=== PATIENT | male | born 1950 | race Caucasian/White ===

== ENCOUNTER 2020-09-30 18:48 | Inpatient (IN) ==
[2020-09-30] MEDS ORDERED: Isovue-370 500 ML BOTTLE IVP ONE (19:03)
[2020-09-30 19:32] LABS: Basophils % 0.3 %; Eosinophils # 0.3 K/mcL (0.0-0.6); Eosinophils % 3.4 %; Hematocrit 37.1 % (37.5-50.1); Hemoglobin 11.6 g/dL (12.9-16.9); Immature Granulocytes % 0.3 % (0-4); Lymphocytes # 1.3 K/mcL (0.6-4.6); Mean Corpuscular HGB Conc 31.3 g/dL (31.6-35.5); Mean Corpuscular Volume 86.5 fL (83.0-100.0); Mean Platelet Volume 9.5 fL (9.4-12.4); Monocytes # 0.6 K/mcL (0.0-1.3); Monocytes % 6.1 %; Neutrophils # 6.9 K/mcL (1.6-8.9); Platelet Count 378 K/mcL (140-400); Red Blood Count 4.29 M/mcL (4.19-5.50); Red Cell Distribution Width 15.7 % (11.5-14.5); Segmented Neutrophils % 75.9 %; White Blood Count 9.1 K/mcL (4.3-11.1)
[2020-09-30 19:42] LABS: Bacteria,Urine Few per hpf (None-Few); Bilirubin,Urine Negative (Negative); Blood,Urine Large (Negative); Calcium Oxalate Crystals,Urine Present; Clarity,Urine Turbid (Clear); Color,Urine Yellow (Yellow); Glucose,Urine (UA) Normal (Normal); Hyaline Casts,Urine Few per lpf (None Seen); Ketones,Urine 10 mg/dL (Negative); Leukocyte Esterase,Urine Negative (Negative); Mucus,Urine Moderate per lpf (None-Few); Nitrite,Urine Negative (Negative); Protein,Urine 100 mg/dL (Neg-Trace); RBC,Urine TNTC per hpf (0-3); Specific Gravity,Urine 1.026 (1.010-1.025); Squamous Epithelial Cell,Urine Few per hpf (None-Few)
[2020-09-30 19:45] LABS: Alanine Aminotransferase 20 Units/L (7-52); Albumin/Globulin Ratio 1.2 (1.1-2.2); Alkaline Phosphatase 107 Units/L (34-104); Aspartate Amino Transferase 21 Units/L (13-39); BUN/Creatinine Ratio 22 (6-26); Bilirubin,Direct 0.1 mg/dL (0.0-0.2); Bilirubin,Indirect 0.5 mg/dL (0.0-1.0); Bilirubin,Total 0.6 mg/dL (0.3-1.0); Blood Urea Nitrogen 22 mg/dL (8-23); Calcium 9.4 mg/dL (8.6-10.3); Carbon Dioxide 23 mEq/L (23-29); Chloride 106 mEq/L (98-107); Globulin 3.4 g/dL (2.4-3.5); Glucose 131 mg/dL (70-105); Lipase 24 Units/L (11-82); Osmolality,Calculated 291 (280-300); Potassium 3.5 mEq/L (3.5-5.1); Sodium 138 mEq/L (136-145); Total Protein 7.4 g/dL (6.4-8.9); Troponin I < 0.03 ng/mL (< 0.04); eGFR For African Americans > 60 (> 60); eGFR For Non-African Americans > 60 (> 60)
[2020-09-30] MEDS ORDERED: *HR* FentaNYL (PF) 100 MCG/2 ML VIAL IVP ONE (20:55)
[2020-09-30] MEDS ORDERED: Naloxone 0.4 MG/ML INJ IVP PRN (22:06)
[2020-09-30] MEDS ORDERED: *HR* HYDROcodone/Acet 5/325 mg TABLET PO PRN (22:06)
[2020-09-30] MEDS ORDERED: Acetaminophen 325 MG TABLET PO PRN (22:06)
[2020-09-30] MEDS ORDERED: Ondansetron 4 MG/2 ML VIAL IVP PRN (22:06)
[2020-09-30] MEDS ORDERED: *HR* OxyCODONE Immed Rel 5 MG TABLET PO PRN (22:06)
[2020-09-30] MEDS ORDERED: *HR* HYDROmorphone (PF) 1 MG/ML SYRINGE IVP PRN (22:09)
[2020-10-01] MEDS: Ringers Solution, Lactated 1,000 ML IVC SCH ×2 (00:12→08:14)
[2020-10-01 03:18] LABS: Basophils % 0.4 %; Eosinophils # 0.4 K/mcL (0.0-0.6); Eosinophils % 4.6 %; Hematocrit 37.5 % (37.5-50.1); Hemoglobin 11.6 g/dL (12.9-16.9); Immature Granulocytes % 0.5 % (0-4); Lymphocytes # 1.6 K/mcL (0.6-4.6); Lymphocytes % 19.1 %; Mean Corpuscular HGB Conc 30.9 g/dL (31.6-35.5); Mean Corpuscular Hemoglobin 26.9 pg (28.0-33.3); Mean Platelet Volume 9.3 fL (9.4-12.4); Monocytes # 0.6 K/mcL (0.0-1.3); Monocytes % 7.2 %; Neutrophils # 5.6 K/mcL (1.6-8.9); Platelet Count 348 K/mcL (140-400); Red Blood Count 4.31 M/mcL (4.19-5.50); Red Cell Distribution Width 15.4 % (11.5-14.5); Segmented Neutrophils % 68.2 %; White Blood Count 8.2 K/mcL (4.3-11.1)
[2020-10-01 03:36] LABS: BUN/Creatinine Ratio 21 (6-26); Blood Urea Nitrogen 17 mg/dL (8-23); Calcium 9.3 mg/dL (8.6-10.3); Carbon Dioxide 24 mEq/L (23-29); Chloride 105 mEq/L (98-107); Glucose 104 mg/dL (70-105); Osmolality,Calculated 290 (280-300); Potassium 3.4 mEq/L (3.5-5.1); Sodium 139 mEq/L (136-145); eGFR For African Americans > 60 (> 60); eGFR For Non-African Americans > 60 (> 60)
[2020-10-01] MEDS: *HR* Heparin 5,000 UNIT/ML VIAL SQ SCH ×2 (05:58→19:42)
[2020-10-01 09:22] LABS: Influenza A PCR Negative (Negative); Influenza B PCR Negative (Negative); Resp. Syncytial Virus PCR Negative (Negative)
[2020-10-01 10:23] LABS: SARS-CoV-2 by PCR (In House) Negative (Negative)
[2020-10-01] MEDS ORDERED: *HR* OxyCODONE Immed Rel 5 MG TABLET PO PRN ×2 (16:13→18:13)
[2020-10-01] MEDS ORDERED: *HR* HYDROmorphone PF 0.5 MG/0.5 ML SYRINGE IVP PRN (16:13)
[2020-10-01] MEDS ORDERED: Ondansetron 4 MG/2 ML VIAL IVP PRN ×2 (16:13→18:13)
[2020-10-01] MEDS ORDERED: Famotidine 20 MG/2 ML VIAL ONE (16:23)
[2020-10-01] MEDS ORDERED: Dexamethasone 4 MG/ML VIAL ONE (17:07)
[2020-10-01] MEDS ORDERED: Lidocaine -MPF 2% 2 ML VIAL ONE (17:07)
[2020-10-01] MEDS ORDERED: *HR* FentaNYL (PF) 100 MCG/2 ML VIAL ONE (17:07)
[2020-10-01] MEDS ORDERED: *HR* Propofol 200 MG/20 ML VIAL IVP ONE (17:07)
[2020-10-01] MEDS ORDERED: Ondansetron 4 MG/2 ML VIAL ONE (17:07)
[2020-10-01] MEDS ORDERED: *HR* PHENYLEPHRINE 1,000 MCG/10 ML SYRINGE IVP ONE (17:24)
[2020-10-01] MEDS ORDERED: Naloxone 0.4 MG/ML INJ IVP PRN (18:13)
[2020-10-01] MEDS ORDERED: Acetaminophen 325 MG TABLET PO PRN (18:13)
[2020-10-01] MEDS ORDERED: *HR* HYDROmorphone (PF) 1 MG/ML SYRINGE IVP PRN (18:13)
[2020-10-01] MEDS ORDERED: Ringers Solution, Lactated 1,000 ML IVC SCH (18:13)
[2020-10-01] MEDS ORDERED: *HR* HYDROcodone/Acet 5/325 mg TABLET PO PRN (18:13)
[2020-10-02] MEDS ORDERED: Ringers Solution, Lactated 1,000 ML ONE (04:52)
[2020-10-02] MEDS ORDERED: Ringers Solution, Lactated 1,000 ML IVC SCH (05:00)
[2020-10-02 05:31] LABS: BUN/Creatinine Ratio 21 (6-26); Blood Urea Nitrogen 17 mg/dL (8-23); Calcium 9.1 mg/dL (8.6-10.3); Carbon Dioxide 26 mEq/L (23-29); Chloride 105 mEq/L (98-107); Glucose 174 mg/dL (70-105); Magnesium 1.9 mg/dL (1.6-2.6); Osmolality,Calculated 290 (280-300); Phosphorous 2.8 mg/dL (2.7-4.5); Potassium 4.2 mEq/L (3.5-5.1); Sodium 137 mEq/L (136-145); eGFR For African Americans > 60 (> 60); eGFR For Non-African Americans > 60 (> 60)
[2020-10-02] MEDS: *HR* Heparin 5,000 UNIT/ML VIAL SQ SCH ×2 (06:06→18:24)
[2020-10-02 16:05] VITALS: BP 152/80
== END 2020-10-02 19:58 | disposition home health service (06) | DRG 661 ==
LOC: EMEROOARM 18:48 → 3ANU 18:48 → SUATTDRO 22:32 → 3ANU 23:24
PROVIDERS: ADMIT Internal Medicine; ATTEND Internal Medicine

== ENCOUNTER 2021-03-07 20:23 | Inpatient (IN) ==
[2021-03-07] MEDS ORDERED: Morphine Sulfate 2 MG/ML SYRINGE IVP ONE (20:31)
[2021-03-07] MEDS ORDERED: Isovue-370 500 ML BOTTLE IVP ONE (20:32)
[2021-03-07 21:08] LABS: Basophils # 0.1 K/mcL (0.0-0.2); Basophils % 0.7 %; Eosinophils # 0.8 K/mcL (0.0-0.6); Eosinophils % 11.2 %; Hematocrit 39.1 % (37.5-50.1); Hemoglobin 12.3 g/dL (12.9-16.9); Immature Granulocytes % 0.3 % (0-4); Lymphocytes # 1.4 K/mcL (0.6-4.6); Lymphocytes % 20.5 %; Mean Corpuscular HGB Conc 31.5 g/dL (31.6-35.5); Mean Corpuscular Hemoglobin 28.8 pg (28.0-33.3); Mean Corpuscular Volume 91.6 fL (83.0-100.0); Mean Platelet Volume 9.9 fL (9.4-12.4); Monocytes # 0.5 K/mcL (0.0-1.3); Monocytes % 6.5 %; Neutrophils # 4.2 K/mcL (1.6-8.9); Platelet Count 265 K/mcL (140-400); Red Blood Count 4.27 M/mcL (4.19-5.50); Red Cell Distribution Width 14.5 % (11.5-14.5); Segmented Neutrophils % 60.8 %; White Blood Count 6.9 K/mcL (4.3-11.1)
[2021-03-07 21:20] LABS: INR 1.1; Prothrombin Time 12.4 Seconds (9.4-12.1)
[2021-03-07 21:22] LABS: Alanine Aminotransferase 22 Units/L (7-52); Albumin/Globulin Ratio 1.7 (1.1-2.2); Alkaline Phosphatase 93 Units/L (34-104); Aspartate Amino Transferase 24 Units/L (13-39); BUN/Creatinine Ratio 19 (6-26); Bilirubin,Direct 0.1 mg/dL (0.0-0.2); Bilirubin,Indirect 0.4 mg/dL (0.0-1.0); Bilirubin,Total 0.5 mg/dL (0.3-1.0); Blood Urea Nitrogen 16 mg/dL (8-23); Calcium 9.1 mg/dL (8.6-10.3); Carbon Dioxide 24 mEq/L (23-29); Chloride 107 mEq/L (98-107); Globulin 2.4 g/dL (2.4-3.5); Glucose 134 mg/dL (70-105); Lipase 26 Units/L (11-82); Osmolality,Calculated 289 (280-300); Potassium 3.7 mEq/L (3.5-5.1); Sodium 138 mEq/L (136-145); Total Protein 6.4 g/dL (6.4-8.9); Troponin I < 0.03 ng/mL (< 0.04); eGFR For African Americans > 60 (> 60); eGFR For Non-African Americans > 60 (> 60)
[2021-03-07 21:23] LABS: Activated Partial Thrombo Time 29.4 Seconds (26.0-36.0)
[2021-03-07 23:56] LABS: Bilirubin,Urine Negative (Negative); Blood,Urine Negative (Negative); Clarity,Urine Clear (Clear); Color,Urine Yellow (Yellow); Glucose,Urine (UA) Normal (Normal); Ketones,Urine Negative (Negative); Leukocyte Esterase,Urine Negative (Negative); Nitrite,Urine Negative (Negative); PH,Urine 5.5 pH Units (5.0-8.0); Protein,Urine Trace mg/dL (Neg-Trace); Specific Gravity,Urine > 1.030 (1.010-1.025)
[2021-03-08] MEDS ORDERED: Ondansetron 4 MG/2 ML VIAL IVP PRN (00:53)
[2021-03-08] MEDS ORDERED: Melatonin 3 MG TABLET PO PRN (00:53)
[2021-03-08] MEDS ORDERED: Naloxone 0.4 MG/ML INJ IVP PRN (00:53)
[2021-03-08] MEDS: Morphine Sulfate 2 MG/ML SYRINGE IVP PRN (02:08)
[2021-03-08] MEDS ORDERED: *HR* Dextrose 50 % in Water (Vial) 50 ML VIAL IVP PRN (04:32)
[2021-03-08] MEDS ORDERED: Dextrose Gel 15 GM/37.5 ML TUBE PO PRN ×2 (04:32)
[2021-03-08] MEDS ORDERED: D5% in Water 1,000 ML IVC PRN (04:32)
[2021-03-08 04:33] LABS: Basophils % 0.6 %; Eosinophils # 0.9 K/mcL (0.0-0.6); Eosinophils % 12.7 %; Hematocrit 39.4 % (37.5-50.1); Hemoglobin 12.2 g/dL (12.9-16.9); Immature Granulocytes % 0.3 % (0-4); Lymphocytes # 1.5 K/mcL (0.6-4.6); Lymphocytes % 21.9 %; Mean Corpuscular Hemoglobin 28.7 pg (28.0-33.3); Mean Corpuscular Volume 92.7 fL (83.0-100.0); Mean Platelet Volume 9.9 fL (9.4-12.4); Monocytes # 0.4 K/mcL (0.0-1.3); Monocytes % 6.4 %; Platelet Count 247 K/mcL (140-400); Red Blood Count 4.25 M/mcL (4.19-5.50); Red Cell Distribution Width 14.6 % (11.5-14.5); Segmented Neutrophils % 58.1 %; White Blood Count 6.9 K/mcL (4.3-11.1)
[2021-03-08 04:45] LABS: Alanine Aminotransferase 21 Units/L (7-52); Albumin 3.7 g/dL (3.5-5.7); Albumin/Globulin Ratio 1.5 (1.1-2.2); Alkaline Phosphatase 80 Units/L (34-104); Aspartate Amino Transferase 23 Units/L (13-39); BUN/Creatinine Ratio 16 (6-26); Bilirubin,Total 0.4 mg/dL (0.3-1.0); Blood Urea Nitrogen 12 mg/dL (8-23); Calcium 8.9 mg/dL (8.6-10.3); Carbon Dioxide 24 mEq/L (23-29); Chloride 108 mEq/L (98-107); Globulin 2.5 g/dL (2.4-3.5); Glucose 98 mg/dL (70-105); Osmolality,Calculated 286 (280-300); Phosphorous 2.7 mg/dL (2.7-4.5); Potassium 3.4 mEq/L (3.5-5.1); Sodium 138 mEq/L (136-145); Total Protein 6.2 g/dL (6.4-8.9); Troponin I < 0.03 ng/mL (< 0.04); eGFR For African Americans > 60 (> 60); eGFR For Non-African Americans > 60 (> 60)
[2021-03-08] MEDS: Insulin LISPRO 300 UNITS/3 ML VIAL SUBQ SCH ×3 (05:19→16:24)
[2021-03-08] MEDS: *HR* Heparin 5,000 UNIT/ML VIAL SQ SCH ×2 (05:19→18:11)
[2021-03-08] MEDS ORDERED: Regadenoson 0.4 MG/5 ML SYRINGE IVP ONE (06:21)
[2021-03-08] MEDS ORDERED: Perflutren Lipid Microsphere 1.3 ML in 0.9 % Sodium Chloride 8.7 ML IVP PRN (13:36)
[2021-03-08] MEDS ORDERED: 0.9 % Sodium Chloride 1,000 ML ONE (13:48)
[2021-03-08] MEDS ORDERED: Nitroglycerin 1,000 MCG/5 ML VIAL IV ONE (13:48)
[2021-03-08] MEDS ORDERED: *HR* Heparin 10,000 UNIT/10 ML VIAL ONE (13:48)
[2021-03-08] MEDS ORDERED: Heparin 1,000 UNITS/500 mL 500 ML ONE (13:48)
[2021-03-08] MEDS ORDERED: ISOVUE-370 200 ML INFUS..BTL ONE ×2 (13:48→15:24)
[2021-03-08] MEDS: Aspirin 81 MG TAB.CHEW PO SCH (14:09)
[2021-03-08] MEDS: Nitroglycerin 0.4 MG TAB.SUBL SL PRN (14:22)
[2021-03-08] MEDS ORDERED: *HR* Midazolam HCl 2 MG/2 ML VIAL ONE (14:33)
[2021-03-08] MEDS ORDERED: *HR* FentaNYL (PF) 100 MCG/2 ML VIAL ONE (14:33)
[2021-03-08] MEDS ORDERED: Isovue-370 500 ML BOTTLE IVP ONE (17:42)
[2021-03-08] MEDS ORDERED: *HR* Metoprolol 5 MG/5 ML VIAL IVP PRN (17:42)
[2021-03-08] MEDS: 0.9 % Sodium Chloride 1,000 ML IVC SCH (18:11)
[2021-03-08] MEDS ORDERED: Acetaminophen 325 MG TABLET PO PRN (22:15)
[2021-03-09] MEDS: Insulin LISPRO 300 UNITS/3 ML VIAL SUBQ SCH ×5 (00:14→23:36)
[2021-03-09] MEDS: 0.9 % Sodium Chloride 1,000 ML IVC SCH ×3 (00:32→19:59)
[2021-03-09] MEDS: *HR* Heparin 5,000 UNIT/ML VIAL SQ SCH ×2 (05:36→17:16)
[2021-03-09] MEDS: Aspirin 81 MG TAB.CHEW PO SCH (08:03)
[2021-03-09 08:55] LABS: Mean Corpuscular HGB Conc 31.7 g/dL (31.6-35.5); Mean Corpuscular Hemoglobin 29.1 pg (28.0-33.3); Mean Corpuscular Volume 91.7 fL (83.0-100.0); Mean Platelet Volume 9.5 fL (9.4-12.4); Platelet Count 246 K/mcL (140-400); Red Blood Count 4.47 M/mcL (4.19-5.50); Red Cell Distribution Width 14.5 % (11.5-14.5); White Blood Count 6.2 K/mcL (4.3-11.1)
[2021-03-09 09:14] LABS: BUN/Creatinine Ratio 11 (6-26); Blood Urea Nitrogen 8 mg/dL (8-23); Calcium 8.9 mg/dL (8.6-10.3); Carbon Dioxide 26 mEq/L (23-29); Chloride 108 mEq/L (98-107); Glucose 97 mg/dL (70-105); Osmolality,Calculated 284 (280-300); Potassium 3.7 mEq/L (3.5-5.1); Sodium 138 mEq/L (136-145); eGFR For African Americans > 60 (> 60); eGFR For Non-African Americans > 60 (> 60)
[2021-03-09] MEDS: *HR* Metoprolol 5 MG/5 ML VIAL IVP PRN ×2 (12:42→12:53)
[2021-03-09] MEDS ORDERED: *HR* Metoprolol 5 MG/5 ML VIAL IVP STA ×2 (13:01→13:15)
[2021-03-09] MEDS: Nitroglycerin 0.4 MG TAB.SUBL SL PRN ×3 (13:40→13:50)
[2021-03-09] MEDS ORDERED: Perflutren Lipid Microsphere 1.3 ML in 0.9 % Sodium Chloride 8.7 ML IVP PRN (15:03)
[2021-03-10 03:26] LABS: Hemoglobin 12.7 g/dL (12.9-16.9); Mean Corpuscular Volume 93.6 fL (83.0-100.0); Mean Platelet Volume 9.6 fL (9.4-12.4); Platelet Count 241 K/mcL (140-400); Red Blood Count 4.38 M/mcL (4.19-5.50); Red Cell Distribution Width 14.4 % (11.5-14.5); White Blood Count 7.2 K/mcL (4.3-11.1)
[2021-03-10 03:49] LABS: BUN/Creatinine Ratio 13 (6-26); Blood Urea Nitrogen 9 mg/dL (8-23); Calcium 8.8 mg/dL (8.6-10.3); Carbon Dioxide 23 mEq/L (23-29); Chloride 109 mEq/L (98-107); Glucose 83 mg/dL (70-105); Osmolality,Calculated 286 (280-300); Potassium 3.9 mEq/L (3.5-5.1); Sodium 139 mEq/L (136-145); eGFR For African Americans > 60 (> 60); eGFR For Non-African Americans > 60 (> 60)
[2021-03-10] MEDS: *HR* Heparin 5,000 UNIT/ML VIAL SQ SCH ×2 (04:54→17:54)
[2021-03-10] MEDS: 0.9 % Sodium Chloride 1,000 ML IVC SCH ×2 (04:57→15:07)
[2021-03-10] MEDS: Insulin LISPRO 300 UNITS/3 ML VIAL SUBQ SCH ×3 (08:29→17:43)
[2021-03-10] MEDS: Aspirin 81 MG TAB.CHEW PO SCH (08:39)
[2021-03-10] MEDS: amLODIPine 5 MG TABLET PO SCH (12:17)
[2021-03-10] MEDS: carvediloL 6.25 MG TABLET PO SCH (17:54)
[2021-03-11] MEDS: Insulin LISPRO 300 UNITS/3 ML VIAL SUBQ SCH ×4 (00:20→17:07)
[2021-03-11] MEDS: 0.9 % Sodium Chloride 1,000 ML IVC SCH (02:08)
[2021-03-11] MEDS: *HR* Heparin 5,000 UNIT/ML VIAL SQ SCH ×2 (05:15→16:27)
[2021-03-11 06:08] LABS: Basophils % 0.4 %; Eosinophils # 1.2 K/mcL (0.0-0.6); Eosinophils % 16.8 %; Hematocrit 38.7 % (37.5-50.1); Hemoglobin 12.2 g/dL (12.9-16.9); Immature Granulocytes % 0.3 % (0-4); Lymphocytes # 1.1 K/mcL (0.6-4.6); Lymphocytes % 15.7 %; Mean Corpuscular HGB Conc 31.5 g/dL (31.6-35.5); Mean Corpuscular Hemoglobin 28.7 pg (28.0-33.3); Mean Corpuscular Volume 91.1 fL (83.0-100.0); Mean Platelet Volume 9.5 fL (9.4-12.4); Monocytes # 0.4 K/mcL (0.0-1.3); Monocytes % 5.4 %; Neutrophils # 4.4 K/mcL (1.6-8.9); Platelet Count 242 K/mcL (140-400); Red Blood Count 4.25 M/mcL (4.19-5.50); Red Cell Distribution Width 14.4 % (11.5-14.5); Segmented Neutrophils % 61.4 %; White Blood Count 7.1 K/mcL (4.3-11.1)
[2021-03-11 06:28] LABS: BUN/Creatinine Ratio 18 (6-26); Blood Urea Nitrogen 12 mg/dL (8-23); Calcium 9.3 mg/dL (8.6-10.3); Carbon Dioxide 25 mEq/L (23-29); Chloride 108 mEq/L (98-107); Glucose 111 mg/dL (70-105); Osmolality,Calculated 288 (280-300); Potassium 3.7 mEq/L (3.5-5.1); Sodium 139 mEq/L (136-145); eGFR For African Americans > 60 (> 60); eGFR For Non-African Americans > 60 (> 60)
[2021-03-11] MEDS: carvediloL 6.25 MG TABLET PO SCH ×2 (09:32→16:28)
[2021-03-11] MEDS: Aspirin 81 MG TAB.CHEW PO SCH (09:32)
[2021-03-11] MEDS: amLODIPine 5 MG TABLET PO SCH (09:33)
[2021-03-11 11:16] LABS: Chol/HDL Ratio 3.8 (0-4.9)
[2021-03-11 11:19] LABS: Estimated Average Glucose 128 mg/dl; Hemoglobin A1C 6.1 %
[2021-03-11] MEDS: Morphine Sulfate 2 MG/ML SYRINGE IVP PRN (16:28)
[2021-03-11] MEDS: Chlorhexidine Rinse 15 ML MOUTHWASH MM SCH (19:58)
[2021-03-12] MEDS: Insulin LISPRO 300 UNITS/3 ML VIAL SUBQ SCH ×2 (00:47→05:44)
[2021-03-12] MEDS: *HR* Heparin 5,000 UNIT/ML VIAL SQ SCH (05:41)
[2021-03-12] MEDS: Chlorhexidine Rinse 15 ML MOUTHWASH MM SCH ×2 (05:41→21:09)
[2021-03-12] MEDS: carvediloL 6.25 MG TABLET PO SCH (05:41)
[2021-03-12] MEDS ORDERED: Papaverine 60 MG/2 ML VIAL IVP ONE (06:53)
[2021-03-12] MEDS ORDERED: CeFAZolin Syr 2,000MG/20 ML 2,000 MG/20 ML SYRINGE IVPB ONE (07:00)
[2021-03-12] MEDS ORDERED: *HR* Midazolam HCl 5 MG/5 ML VIAL IVP ONE (07:32)
[2021-03-12] MEDS ORDERED: *HR* Rocuronium Bromide 50 MG/5 ML VIAL ONE ×2 (07:32→09:47)
[2021-03-12] MEDS ORDERED: *HR* FentaNYL (PF) 1,000 MCG/20 ML VIAL ONE (07:32)
[2021-03-12] MEDS ORDERED: *HR* Propofol 200 MG/20 ML VIAL IVP ONE (07:32)
[2021-03-12] MEDS ORDERED: Lidocaine 2% Syringe 100 MG/5 ML ONE (07:33)
[2021-03-12] MEDS ORDERED: *HR* Magnesium Sulfate 1 GM/2 ML VIAL ONE (07:33)
[2021-03-12] MEDS ORDERED: Famotidine 20 MG/2 ML VIAL ONE (07:33)
[2021-03-12] MEDS ORDERED: Tranexamic Acid 1,000 MG/10 ML VIAL ONE (07:33)
[2021-03-12] MEDS ORDERED: Heparin 15,000 UNIT in 0.9 % Sodium Chloride 500 ML IV ONE (07:45)
[2021-03-12] MEDS ORDERED: Norepinephrine 4 MG in 0.9 % Sodium Chloride 250 ML IVC PRN (07:45)
[2021-03-12] MEDS ORDERED: Dextrose 50 % in Water (Vial) 30 ML, Sodium Bicarbonate 20 MEQ, Potassium Chloride 15 M... TH ONE (07:45)
[2021-03-12] MEDS ORDERED: Dextrose 50 % in Water (Vial) 30 ML, Sodium Bicarbonate 20 MEQ, Lidocaine 1% 5 ML, Insu... TH ONE ×3 (07:45)
[2021-03-12 08:41] LABS: ABG Base Excess 0 mEq/L (-2 to 3); ABG Chloride 106 mEq/L (98-107); ABG Glucose 106 mg/dL (60-95); ABG HCO3 26 mEq/L (21-27); ABG Ionized Calcium 1.18 mmol/L (1.15-1.35); ABG Oxygen Saturation 100 % (95-98); ABG PCO2 44 mmHg (35-45); ABG PH 7.37 pH Units (7.32-7.45); ABG PO2 216 mmHg (85-104); ABG TCO2 27 mEq/L (20-26)
[2021-03-12 09:36] LABS: ABG Base Excess 0 mEq/L (-2 to 3); ABG Chloride 106 mEq/L (98-107); ABG Glucose 118 mg/dL (60-95); ABG HCO3 26 mEq/L (21-27); ABG Ionized Calcium 1.21 mmol/L (1.15-1.35); ABG Oxygen Saturation 100 % (95-98); ABG PCO2 44 mmHg (35-45); ABG PH 7.37 pH Units (7.32-7.45); ABG PO2 221 mmHg (85-104); ABG TCO2 27 mEq/L (20-26)
[2021-03-12 10:05] LABS: ABG Base Excess 3 mEq/L (-2 to 3); ABG Chloride 100 mEq/L (98-107); ABG Glucose 198 mg/dL (60-95); ABG HCO3 29 mEq/L (21-27); ABG Ionized Calcium 1.03 mmol/L (1.15-1.35); ABG Oxygen Saturation 100 % (95-98); ABG PCO2 51 mmHg (35-45); ABG PH 7.36 pH Units (7.32-7.45); ABG PO2 488 mmHg (85-104); ABG TCO2 31 mEq/L (20-26)
[2021-03-12 10:21] LABS: ABG Base Excess 3 mEq/L (-2 to 3); ABG Chloride 101 mEq/L (98-107); ABG Glucose 155 mg/dL (60-95); ABG HCO3 28 mEq/L (21-27); ABG Ionized Calcium 1.41 mmol/L (1.15-1.35); ABG Oxygen Saturation 100 % (95-98); ABG PCO2 45 mmHg (35-45); ABG PO2 417 mmHg (85-104); ABG TCO2 29 mEq/L (20-26)
[2021-03-12] MEDS ORDERED: Protamine Sulfate 250 MG/25 ML VIAL IVP ONE (10:21)
[2021-03-12] MEDS ORDERED: Albumin Human 5% 12.5 GM/250 ML IV.SOLN ONE (10:21)
[2021-03-12] MEDS ORDERED: Protamine Sulfate 50 MG/5 ML VIAL IVP ONE (10:22)
[2021-03-12 10:43] LABS: ABG Base Excess 1 mEq/L (-2 to 3); ABG Chloride 104 mEq/L (98-107); ABG Glucose 86 mg/dL (60-95); ABG HCO3 26 mEq/L (21-27); ABG Ionized Calcium 1.34 mmol/L (1.15-1.35); ABG Oxygen Saturation 100 % (95-98); ABG PCO2 41 mmHg (35-45); ABG PO2 357 mmHg (85-104); ABG TCO2 27 mEq/L (20-26)
[2021-03-12] MEDS ORDERED: Albumin Human 5% 50.0 GM/1,000 ML IV.SOLN ONE (10:55)
[2021-03-12] MEDS: Aspirin 81 MG TAB.CHEW PO SCH (11:15)
[2021-03-12] MEDS: amLODIPine 5 MG TABLET PO SCH (11:15)
[2021-03-12] MEDS ORDERED: *HR* Promethazine 25 MG/ML VIAL IM PRN (11:18)
[2021-03-12] MEDS ORDERED: Potassium Chloride 40 MEQ/200 ML BAG IVPB PRN (11:18)
[2021-03-12] MEDS ORDERED: Insulin Regular, Human 100 UNIT/ML IV PRN (11:18)
[2021-03-12] MEDS ORDERED: *HR* Dextrose 50 % in Water (Vial) 50 ML VIAL IVP PRN (11:18)
[2021-03-12] MEDS ORDERED: Sennosides 8.6 MG TABLET PO PRN (11:18)
[2021-03-12] MEDS: Albumin Human 5% 12.5 GM/250 ML IV.SOLN IVPB PRN ×2 (11:25→11:45)
[2021-03-12] MEDS ORDERED: Norepinephrine 4 MG/254 ML IV.SOLN IVC SCH (11:30)
[2021-03-12 11:32] LABS: ABG Base Excess 1 mEq/L (-2 to 3); ABG HCO3 27 mEq/L (21-27); ABG Oxygen Saturation 92 % (95-98); ABG PCO2 45 mmHg (35-45); ABG PH 7.37 pH Units (7.32-7.45); ABG PO2 65 mmHg (85-104); ABG TCO2 28 mEq/L (20-26); Blood Gas VT 600 cc
[2021-03-12 11:43] LABS: Basophils # 0.1 K/mcL (0.0-0.2); Basophils % 0.4 %; Eosinophils # 0.8 K/mcL (0.0-0.6); Eosinophils % 6.1 %; Hematocrit 33.5 % (37.5-50.1); Hemoglobin 10.8 g/dL (12.9-16.9); Lymphocytes # 0.9 K/mcL (0.6-4.6); Lymphocytes % 7.2 %; Mean Corpuscular HGB Conc 32.2 g/dL (31.6-35.5); Mean Corpuscular Hemoglobin 29.2 pg (28.0-33.3); Mean Corpuscular Volume 90.5 fL (83.0-100.0); Mean Platelet Volume 9.3 fL (9.4-12.4); Monocytes # 0.4 K/mcL (0.0-1.3); Monocytes % 2.7 %; Neutrophils # 10.7 K/mcL (1.6-8.9); Platelet Count 182 K/mcL (140-400); Red Cell Distribution Width 14.4 % (11.5-14.5); Segmented Neutrophils % 82.6 %
[2021-03-12 11:49] LABS: INR 1.2; Prothrombin Time 13.8 Seconds (9.4-12.1)
[2021-03-12] MEDS ORDERED: niCARdipine 20 MG/200 ML MLS IVC ONE (12:01)
[2021-03-12 12:02] LABS: BUN/Creatinine Ratio 20 (6-26); Blood Urea Nitrogen 14 mg/dL (8-23); Calcium 8.8 mg/dL (8.6-10.3); Carbon Dioxide 26 mEq/L (23-29); Chloride 107 mEq/L (98-107); Glucose 90 mg/dL (70-105); Magnesium 2.7 mg/dL (1.6-2.6); Osmolality,Calculated 284 (280-300); Potassium 4.1 mEq/L (3.5-5.1); Sodium 137 mEq/L (136-145); eGFR For African Americans > 60 (> 60); eGFR For Non-African Americans > 60 (> 60)
[2021-03-12] MEDS: niCARdipine 20 MG/200 ML MLS IVC SCH ×5 (12:05→23:48)
[2021-03-12] MEDS: 0.9 % Sodium Chloride 1,000 ML IVC SCH (13:05)
[2021-03-12] MEDS: *HR* OxyCODONE/APAP 5/325 TABLET PO PRN ×3 (13:39→22:58)
[2021-03-12] MEDS: *HR* FentaNYL (PF) 100 MCG/2 ML VIAL IVP PRN ×3 (13:39→21:09)
[2021-03-12 14:54] LABS: ABG Base Excess 1 mEq/L (-2 to 3); ABG HCO3 26 mEq/L (21-27); ABG Oxygen Saturation 94 % (95-98); ABG PCO2 47 mmHg (35-45); ABG PH 7.36 pH Units (7.32-7.45); ABG PO2 75 mmHg (85-104); ABG TCO2 28 mEq/L (20-26)
[2021-03-12 15:41] LABS: ABG Base Excess 0 mEq/L (-2 to 3); ABG HCO3 27 mEq/L (21-27); ABG Oxygen Saturation 90 % (95-98); ABG PCO2 48 mmHg (35-45); ABG PH 7.35 pH Units (7.32-7.45); ABG PO2 63 mmHg (85-104); ABG TCO2 28 mEq/L (20-26)
[2021-03-12] MEDS: CeFAZolin 2 GM/120 ML BAG IVPB SCH ×2 (15:44→22:58)
[2021-03-12] MEDS ORDERED: Lidocaine 2% Syringe 100 MG/5 ML IVP ONE (17:23)
[2021-03-12] MEDS ORDERED: *HR* Magnesium Sulfate 2 GM/50 ML PIGGYBACK IVPB ONE (17:23)
[2021-03-12] MEDS ORDERED: *HR* Heparin 10,000 UNIT/10 ML VIAL IR ONE (17:23)
[2021-03-12] MEDS ORDERED: *HR* Phenylephrine 10 MG/ML VIAL IVC ONE (17:23)
[2021-03-12] MEDS ORDERED: Mannitol 25% vial 12.5 GM/50 ML VIAL IVPB ONE (17:23)
[2021-03-12] MEDS ORDERED: Tranexamic Acid 1,000 MG/10 ML VIAL IR ONE (17:23)
[2021-03-12] MEDS ORDERED: Albumin Human 25% 25 GM/100 ML IV.SOLN IVPB ONE (17:23)
[2021-03-13] MEDS: *HR* FentaNYL (PF) 100 MCG/2 ML VIAL IVP PRN (01:08)
[2021-03-13] MEDS: 0.9 % Sodium Chloride 1,000 ML IVC SCH (03:20)
[2021-03-13] MEDS: *HR* OxyCODONE/APAP 5/325 TABLET PO PRN ×3 (04:21→18:20)
[2021-03-13 04:30] LABS: Hematocrit 33.9 % (37.5-50.1); Hemoglobin 10.9 g/dL (12.9-16.9); Mean Corpuscular HGB Conc 32.2 g/dL (31.6-35.5); Mean Corpuscular Hemoglobin 29.4 pg (28.0-33.3); Mean Corpuscular Volume 91.4 fL (83.0-100.0); Mean Platelet Volume 10.2 fL (9.4-12.4); Platelet Count 210 K/mcL (140-400); Red Blood Count 3.71 M/mcL (4.19-5.50); Red Cell Distribution Width 14.6 % (11.5-14.5); Segmented Neutrophils % 86.3 %; White Blood Count 14.6 K/mcL (4.3-11.1)
[2021-03-13 04:31] LABS: Basophils % 0.1 %; Immature Granulocytes % 0.5 % (0-4); Lymphocytes # 0.9 K/mcL (0.6-4.6); Monocytes % 7.1 %; Neutrophils # 12.6 K/mcL (1.6-8.9)
[2021-03-13] MEDS: niCARdipine 20 MG/200 ML MLS IVC SCH (04:43)
[2021-03-13 04:47] LABS: BUN/Creatinine Ratio 25 (6-26); Blood Urea Nitrogen 19 mg/dL (8-23); Calcium 8.8 mg/dL (8.6-10.3); Carbon Dioxide 24 mEq/L (23-29); Chloride 103 mEq/L (98-107); Glucose 122 mg/dL (70-105); Osmolality,Calculated 280 (280-300); Potassium 4.6 mEq/L (3.5-5.1); Sodium 133 mEq/L (136-145); eGFR For African Americans > 60 (> 60); eGFR For Non-African Americans > 60 (> 60)
[2021-03-13] MEDS: Aspirin 81 MG TAB.CHEW PO SCH (08:25)
[2021-03-13] MEDS: Chlorhexidine Rinse 15 ML MOUTHWASH MM SCH ×2 (08:25→20:05)
[2021-03-13] MEDS ORDERED: Pantoprazole 40 MG VIAL IVP SCH (09:00)
[2021-03-13] MEDS ORDERED: Melatonin 3 MG TABLET PO PRN (10:39)
[2021-03-13] MEDS ORDERED: Sennosides 8.6 MG TABLET PO PRN (10:39)
[2021-03-13] MEDS ORDERED: Dextrose Gel 15 GM/37.5 ML TUBE PO PRN ×2 (10:39)
[2021-03-13] MEDS ORDERED: *HR* Promethazine 25 MG/ML VIAL IM PRN (10:39)
[2021-03-13] MEDS ORDERED: Nitroglycerin 0.4 MG TAB.SUBL SL PRN (10:39)
[2021-03-13] MEDS ORDERED: D5% in Water 1,000 ML IVC PRN (10:39)
[2021-03-13] MEDS ORDERED: Acetaminophen 325 MG TABLET PO PRN (10:39)
[2021-03-13] MEDS ORDERED: *HR* Dextrose 50 % in Water (Vial) 50 ML VIAL IVP PRN (10:39)
[2021-03-13] MEDS ORDERED: Naloxone 0.4 MG/ML INJ IVP PRN (10:39)
[2021-03-13] MEDS ORDERED: Ondansetron 4 MG/2 ML VIAL IVP PRN (10:39)
[2021-03-13] MEDS ORDERED: Ketorolac 15 MG/ML VIAL IVP SCH (12:00)
[2021-03-13] MEDS: Ketorolac 15 MG/ML VIAL IVP SCH ×3 (12:49→23:51)
[2021-03-13] MEDS: Insulin LISPRO 300 UNITS/3 ML VIAL SUBQ SCH ×3 (12:50→20:16)
[2021-03-13] MEDS: *HR* Heparin 5,000 UNIT/ML VIAL SQ SCH (18:19)
[2021-03-14] MEDS: *HR* Heparin 5,000 UNIT/ML VIAL SQ SCH ×2 (05:55→17:45)
[2021-03-14] MEDS: Ketorolac 15 MG/ML VIAL IVP SCH ×4 (05:55→23:25)
[2021-03-14] MEDS ORDERED: Pantoprazole 40 MG VIAL IVP SCH (09:00)
[2021-03-14] MEDS: Aspirin 81 MG TAB.CHEW PO SCH (09:04)
[2021-03-14] MEDS: Chlorhexidine Rinse 15 ML MOUTHWASH MM SCH ×2 (09:04→20:02)
[2021-03-14] MEDS: Insulin LISPRO 300 UNITS/3 ML VIAL SUBQ SCH ×4 (09:05→19:49)
[2021-03-14 10:50] LABS: Basophils % 0.3 %; Eosinophils # 0.3 K/mcL (0.0-0.6); Eosinophils % 2.5 %; Hematocrit 32.6 % (37.5-50.1); Hemoglobin 10.3 g/dL (12.9-16.9); Immature Granulocytes % 0.5 % (0-4); Lymphocytes % 10.4 %; Mean Corpuscular HGB Conc 31.6 g/dL (31.6-35.5); Mean Corpuscular Hemoglobin 29.2 pg (28.0-33.3); Mean Corpuscular Volume 92.4 fL (83.0-100.0); Mean Platelet Volume 10.3 fL (9.4-12.4); Monocytes # 0.6 K/mcL (0.0-1.3); Monocytes % 6.4 %; Neutrophils # 7.8 K/mcL (1.6-8.9); Platelet Count 192 K/mcL (140-400); Red Blood Count 3.53 M/mcL (4.19-5.50); Red Cell Distribution Width 14.9 % (11.5-14.5); Segmented Neutrophils % 79.9 %; White Blood Count 9.8 K/mcL (4.3-11.1)
[2021-03-14 11:14] LABS: BUN/Creatinine Ratio 28 (6-26); Blood Urea Nitrogen 21 mg/dL (8-23); Calcium 9.2 mg/dL (8.6-10.3); Carbon Dioxide 25 mEq/L (23-29); Chloride 103 mEq/L (98-107); Glucose 173 mg/dL (70-105); Osmolality,Calculated 283 (280-300); Potassium 4.2 mEq/L (3.5-5.1); Sodium 133 mEq/L (136-145); eGFR For African Americans > 60 (> 60); eGFR For Non-African Americans > 60 (> 60)
[2021-03-15] MEDS: Ketorolac 15 MG/ML VIAL IVP SCH ×3 (05:44→17:45)
[2021-03-15] MEDS: *HR* Heparin 5,000 UNIT/ML VIAL SQ SCH ×2 (05:44→17:44)
[2021-03-15 06:46] LABS: Basophils % 0.3 %; Eosinophils # 0.4 K/mcL (0.0-0.6); Eosinophils % 5.1 %; Hematocrit 28.6 % (37.5-50.1); Hemoglobin 9.4 g/dL (12.9-16.9); Immature Granulocytes % 0.4 % (0-4); Lymphocytes # 1.3 K/mcL (0.6-4.6); Lymphocytes % 16.5 %; Mean Corpuscular HGB Conc 32.9 g/dL (31.6-35.5); Mean Corpuscular Volume 91.4 fL (83.0-100.0); Mean Platelet Volume 10.4 fL (9.4-12.4); Monocytes # 0.6 K/mcL (0.0-1.3); Neutrophils # 5.5 K/mcL (1.6-8.9); Platelet Count 179 K/mcL (140-400); Red Blood Count 3.13 M/mcL (4.19-5.50); Red Cell Distribution Width 14.9 % (11.5-14.5); Segmented Neutrophils % 69.7 %; White Blood Count 7.9 K/mcL (4.3-11.1)
[2021-03-15 07:11] LABS: BUN/Creatinine Ratio 29 (6-26); Blood Urea Nitrogen 18 mg/dL (8-23); Carbon Dioxide 27 mEq/L (23-29); Chloride 104 mEq/L (98-107); Glucose 113 mg/dL (70-105); Osmolality,Calculated 285 (280-300); Potassium 3.8 mEq/L (3.5-5.1); Sodium 136 mEq/L (136-145); eGFR For African Americans > 60 (> 60); eGFR For Non-African Americans > 60 (> 60)
[2021-03-15] MEDS: *HR* OxyCODONE/APAP 5/325 TABLET PO PRN (08:23)
[2021-03-15] MEDS: Aspirin 81 MG TAB.CHEW PO SCH (08:23)
[2021-03-15] MEDS: Insulin LISPRO 300 UNITS/3 ML VIAL SUBQ SCH ×4 (08:24→19:44)
[2021-03-15] MEDS: Chlorhexidine Rinse 15 ML MOUTHWASH MM SCH ×2 (08:24→19:49)
[2021-03-16] MEDS: Ketorolac 15 MG/ML VIAL IVP SCH ×3 (00:24→11:11)
[2021-03-16] MEDS: *HR* Heparin 5,000 UNIT/ML VIAL SQ SCH ×2 (06:18→16:57)
[2021-03-16] MEDS: Insulin LISPRO 300 UNITS/3 ML VIAL SUBQ SCH ×4 (07:42→20:53)
[2021-03-16] MEDS: Aspirin 81 MG TAB.CHEW PO SCH (07:42)
[2021-03-16] MEDS: Chlorhexidine Rinse 15 ML MOUTHWASH MM SCH ×2 (07:42→19:57)
[2021-03-16] MEDS: *HR* OxyCODONE/APAP 5/325 TABLET PO PRN (19:56)
[2021-03-17] MEDS: *HR* Heparin 5,000 UNIT/ML VIAL SQ SCH ×2 (06:26→16:54)
[2021-03-17] MEDS: *HR* OxyCODONE/APAP 5/325 TABLET PO PRN ×3 (07:06→23:01)
[2021-03-17] MEDS: Aspirin 81 MG TAB.CHEW PO SCH (07:07)
[2021-03-17] MEDS: Insulin LISPRO 300 UNITS/3 ML VIAL SUBQ SCH ×4 (07:07→21:13)
[2021-03-17] MEDS: Chlorhexidine Rinse 15 ML MOUTHWASH MM SCH ×2 (07:07→21:13)
[2021-03-18] MEDS: *HR* Heparin 5,000 UNIT/ML VIAL SQ SCH (08:15)
[2021-03-18] MEDS: Insulin LISPRO 300 UNITS/3 ML VIAL SUBQ SCH ×2 (08:15→11:29)
[2021-03-18] MEDS: Chlorhexidine Rinse 15 ML MOUTHWASH MM SCH (08:15)
[2021-03-18] MEDS: Aspirin 81 MG TAB.CHEW PO SCH (08:15)
[2021-03-18] MEDS: *HR* OxyCODONE/APAP 5/325 TABLET PO PRN (12:35)
[2021-03-18 17:04] VITALS: BP 139/92
== END 2021-03-18 17:24 | DRG 234 ==
LOC: 3BNU 20:23 → EMEROOARM 20:23 → SUATTDRO 23:36 → 3BNU 23:38 → SUATTDRO 03-10 09:37 → ICNU 03-12 07:39 → 2NNU 03-14 18:35
PROVIDERS: ADMIT Internal Medicine; ATTEND Registered Nurse

== ENCOUNTER 2022-06-20 17:22 | Observation (INO) ==
[2022-06-20] MEDS ORDERED: Iopamidol - 370 500 ML MLS IVP ONE (17:54)
[2022-06-20 18:31] LABS: Hematocrit 42.2 % (37.5-50.1); Mean Corpuscular HGB Conc 33.2 g/dL (31.6-35.5); Mean Corpuscular Hemoglobin 30.4 pg (28.0-33.3); Mean Corpuscular Volume 91.5 fL (83.0-100.0); Mean Platelet Volume 9.6 fL (9.4-12.4); Platelet Count 264 K/mcL (140-400); Red Blood Count 4.61 M/mcL (4.19-5.50); Red Cell Distribution Width 13.3 % (11.5-14.5); White Blood Count 8.4 K/mcL (4.3-11.1)
[2022-06-20 18:44] LABS: Alanine Aminotransferase 21 Units/L (7-52); Albumin 3.9 g/dL (3.5-5.7); Albumin/Globulin Ratio 1.3 (1.1-2.2); Alkaline Phosphatase 88 Units/L (34-104); Aspartate Amino Transferase 31 Units/L (13-39); BUN/Creatinine Ratio 23 (6-26); Bilirubin,Direct 0.1 mg/dL (0.0-0.2); Bilirubin,Indirect 0.6 mg/dL (0.0-1.0); Bilirubin,Total 0.7 mg/dL (0.3-1.0); Blood Urea Nitrogen 19 mg/dL (8-23); Calcium 9.8 mg/dL (8.6-10.3); Carbon Dioxide 26 mEq/L (23-29); Chloride 105 mEq/L (98-107); Creatine Kinase 523 Units/L (30-223); Ethanol < 10 mg/dL (Less than 10); Globulin 2.9 g/dL (2.4-3.5); Glucose 119 mg/dL (70-105); Lipase 18 Units/L (11-82); Osmolality,Calculated 289 (280-300); Potassium 3.9 mEq/L (3.5-5.1); Sodium 138 mEq/L (136-145); Total Protein 6.8 g/dL (6.4-8.9); Troponin I < 0.03 ng/mL (< 0.04)
[2022-06-20 19:03] LABS: INR 1.1; Prothrombin Time 12.2 Seconds (9.4-12.1)
[2022-06-20 19:06] LABS: Activated Partial Thrombo Time 31.4 Seconds (26.0-36.0)
[2022-06-20] MEDS ORDERED: Naloxone 0.4 MG/ML INJ IVP PRN (20:45)
[2022-06-20] MEDS ORDERED: Ondansetron 4 MG/2 ML VIAL IVP PRN (20:45)
[2022-06-20] MEDS ORDERED: Aspirin 325 MG TABLET PO ONE (20:47)
[2022-06-20] MEDS ORDERED: Acetaminophen 325 MG TABLET PO PRN (20:58)
[2022-06-20] MEDS ORDERED: *HR* Dextrose 50 % in Water (Syg) 50 ML SYRINGE IVP PRN (21:03)
[2022-06-20] MEDS ORDERED: D5% in Water 1,000 ML IVC PRN (21:03)
[2022-06-20] MEDS ORDERED: Dextrose Gel 15 GM/37.5 ML TUBE PO PRN ×2 (21:03)
[2022-06-20 22:43] LABS: Bilirubin,Urine Negative (Negative); Blood,Urine Negative (Negative); Clarity,Urine Clear (Clear); Color,Urine Light-Yellow (Yellow); Glucose,Urine (UA) Normal (Normal); Ketones,Urine Negative (Negative); Leukocyte Esterase,Urine Negative (Negative); Nitrite,Urine Negative (Negative); Protein,Urine Trace mg/dL (Neg-Trace); Specific Gravity,Urine > 1.030 (1.010-1.025); Urobilinogen,Urine Normal (Normal)
[2022-06-20 22:52] LABS: Mucus,Urine Few per lpf (None-Few); RBC,Urine 0-3 per hpf (0-3); Squamous Epithelial Cell,Urine Few per hpf (None-Few)
[2022-06-21 04:53] LABS: Hematocrit 43.2 % (37.5-50.1); Hemoglobin 13.8 g/dL (12.9-16.9); Mean Corpuscular HGB Conc 31.9 g/dL (31.6-35.5); Mean Corpuscular Hemoglobin 29.7 pg (28.0-33.3); Mean Corpuscular Volume 92.9 fL (83.0-100.0); Mean Platelet Volume 9.7 fL (9.4-12.4); Platelet Count 262 K/mcL (140-400); Red Blood Count 4.65 M/mcL (4.19-5.50); Red Cell Distribution Width 13.4 % (11.5-14.5); White Blood Count 7.3 K/mcL (4.3-11.1)
[2022-06-21 05:01] LABS: Prothrombin Time 11.1 Seconds (9.4-12.1)
[2022-06-21 05:15] LABS: BUN/Creatinine Ratio 29 (6-26); Blood Urea Nitrogen 22 mg/dL (8-23); Calcium 9.5 mg/dL (8.6-10.3); Carbon Dioxide 25 mEq/L (23-29); Chloride 108 mEq/L (98-107); Glucose 98 mg/dL (70-105); Osmolality,Calculated 287 (280-300); Potassium 4.1 mEq/L (3.5-5.1); Sodium 137 mEq/L (136-145)
[2022-06-21 05:16] LABS: Chol/HDL Ratio 5.3 (0-4.9); Cholesterol 197 mg/dL (< 200); HDL Cholesterol 37 mg/dL (40-59); LDL Cholesterol,Calculated 141 mg/dL (< 100); Triglycerides 93 mg/dL (< 150); Troponin I < 0.03 ng/mL (< 0.04)
[2022-06-21] MEDS: *HR* Heparin 5,000 UNIT/ML VIAL SQ SCH ×3 (05:24→21:37)
[2022-06-21] MEDS: Insulin LISPRO 300 UNITS/3 ML VIAL SUBQ SCH ×3 (07:44→16:46)
[2022-06-21 11:05] LABS: Estimated Average Glucose 128 mg/dl; Hemoglobin A1C 6.1 %
[2022-06-22 02:07] LABS: BUN/Creatinine Ratio 30 (6-26); Blood Urea Nitrogen 21 mg/dL (8-23); Calcium 9.4 mg/dL (8.6-10.3); Carbon Dioxide 23 mEq/L (23-29); Chloride 106 mEq/L (98-107); Glucose 94 mg/dL (70-105); Osmolality,Calculated 285 (280-300); Potassium 4.1 mEq/L (3.5-5.1); Sodium 136 mEq/L (136-145)
[2022-06-22] MEDS: *HR* Heparin 5,000 UNIT/ML VIAL SQ SCH ×3 (05:26→20:43)
[2022-06-22] MEDS: Insulin LISPRO 300 UNITS/3 ML VIAL SUBQ SCH ×3 (07:42→16:22)
[2022-06-23] MEDS: *HR* Heparin 5,000 UNIT/ML VIAL SQ SCH ×3 (05:11→20:48)
[2022-06-23] MEDS: Insulin LISPRO 300 UNITS/3 ML VIAL SUBQ SCH ×3 (07:39→16:50)
[2022-06-23] MEDS ORDERED: Iopamidol - 370 500 ML MLS IVP ONE (13:59)
[2022-06-23 20:11] VITALS: BP 129/71; PULSE 95; TEMP 97.8; O2SAT 94
[2022-06-24] MEDS: *HR* Heparin 5,000 UNIT/ML VIAL SQ SCH (05:23)
== END 2022-06-24 08:47 | disposition home or self-care (01) ==
LOC: EMEROOARM 17:22 → 3BNU 17:22 → SUATTDRO 20:28 → 3BNU 21:10
PROVIDERS: ADMIT Internal Medicine; ATTEND Internal Medicine